=== PATIENT | male | born 1955 | race American Indian/Alaskan Native ===

== ENCOUNTER 2018-02-06 09:57 | Emergency (ER) | payer OTHER ==
[2018-02-06 10:03] VITALS: BP 125/83; PULSE 76; TEMP 98; BMI 25.0
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
[2018-02-06] MEDS ORDERED: IBUPROFEN 600 MG TABLET (FP) PO ONE ×2 (11:35→11:37)
== END 2018-02-06 12:48 | disposition home or self-care (01) ==
LOC: JERFT 09:57
DX: M54.5 Low back pain (principal); M54.2 Cervicalgia; V49.49XA Driver injured in collision with other motor vehicles in traffic accident, initial encounter; Y92.488 Other paved roadways as the place of occurrence of the external cause; Y93.89 Activity, other specified; Y99.8 Other external cause status
CPT/HCPCS: 72050-TC-FY; 72100-TC-FY; 99281-25